=== PATIENT | female | born 1970 | race Two or more races ===

== ENCOUNTER → 2021-06-29 | Outpatient (CLI) | payer OTHER ==
[2021-01-27 16:54] VITALS: BP 100/60
[~2021-06-29] MED LIST: ATOR40TA59 PO; LISI2.5T12 PO; METF500T16 PO; MULT-650 PO
--- NOTE | 2021-06-29 12:07 | RAD ---
EXAM: Lumbar spine, 2 views. HISTORY: Pain. COMPARISON: None. FINDINGS: 2 views of the lumbar spine are obtained. There is mild lumbar levocurvature. There is no s ignificant listhesis. The vertebral bodies are normal in height and the disc spaces are preserved. Th ere is minimal endplate remodeling. There is facet arthropathy at the lower lumbar levels. IMPRESSION: 1. Degenerative change primarily the lower lumbar levels. 2. No acute osseous finding. Electronically signed by: Zari Clark MD (06/29/2021 11:50 AM) [id number]
== END ==
LOC: RAD 10:53
PROVIDERS: ATTEND Anesthesiology Pain Medicine
DX: M47.816 Spondylosis without myelopathy or radiculopathy, lumbar region (principal); Z02.71 Encounter for disability determination
CPT/HCPCS: 72100